=== PATIENT | male | born 1980 | race African-American/Black ===

== ENCOUNTER 2017-10-15 18:36 | Emergency (ER) | payer BC ==
--- NOTE | 2017-10-15 18:41 | PDOC ---
Rapid Medical Evaluation Time Seen by Provider: 10/15/17 18:37 Medical Evaluation: Allergies Allergy/AdvReac Type Severity Reaction Status Date / Time No Known Allergies Allergy Verified 05/17/16 09:50 10/15/17 18:38 Pt c/o: rash to sides of neck since thursday, used topical (unknown name) no improvement, states rash is itchy, denies allergies Pt on brief exam: raised patches to bilateral base of neck. Pt ordered for: none Pt to proceed to the ED Discharge Disposition - Diagnosis Contact dermatitis - Discharge Dispostion Disposition: HOME Condition at time of disposition: Stable - Prescriptions Prescriptions: Tacrolimus 0.1% Topical Oint [Protopic (Nf)] 30 gm NR BID #1 tube - Referrals Referrals: FriendAnkur [Primary Care Provider] - - Patient Instructions Printed Discharge Instructions: DI for Contact Dermatitis Additional Instructions: Rest, keep cool and dry- avoid strenuous activity or hot /humid environments Less hot showers, no abrasive soaps May use heavy creams like Eucerin or Cetaphil to keep skin moist You received one dose of Decadron 10 mg as a steroid, one time use for inflammation May apply Aveeno, calamine lotion, [id number] hydrocortisone creams as needed for symptoms May use Benadryl at night for antihistamine, Zyrtec/ Helen or Claritin for daytime antihistamine use to help with itching May use [id number] hydrocortisone cream on all areas except face Try to identify cause for rash and avoid exposures Followup with PMD in one week if no resolution Make appointment with box feeder for evaluation when possible - Post Discharge Activity
[2017-10-15 18:42] VITALS: BP 110/61; PULSE 65; TEMP 98.3; BMI 26.6
[2017-10-15] MEDS ORDERED: DEXAMETHASONE SOD PHOSPHATE 10 MG/1 ML VIAL IM ONE (18:59)
--- NOTE | 2017-10-15 18:59 | PDOC ---
History of Present Illness - General Chief Complaint: Rash Stated Complaint: RASH Time Seen by Provider: 10/15/17 18:37 History Source: Patient Exam Limitations: No Limitations - History of Present Illness Initial Comments: 10/15/17 19:02 Patient came for evaluation of rash that is progressively worsening around neck. States 2 days ago used a hair cream for the first time and woke up following day with an itchy pruritic rash to the right side of his back. States since that time after hot shower rashes progressively worsened to spread around both sides. Has used Benadryl with some minimal resolved., No drainage, no swelling to face tongue and lips. Timing/Duration: reports: getting worse Severity: Yes: mild Location: reports: scalp Modifying Factors: improves with: antihistamine, scratching Associated Symptoms: reports: denies symptoms Past History - Travel Traveled outside of the country in the last 30 days: No Close contact w/someone who was outside of country & ill: No - Past Medical History Allergies/Adverse Reactions: Allergies Allergy/AdvReac Type Severity Reaction Status Date / Time No Known Allergies Allergy Verified 05/17/16 09:50 Home Medications: Ambulatory Orders Tacrolimus 0.1% Topical Oint [Protopic (Nf)] 30 gm NR BID #1 tube 10/15/17 COPD: No DVT: No - Surgical History Abdominal Surgery: Yes (VARICOCELLE REPAIR) - Suicide/Smoking/Psychosocial Hx Smoking Status: No Smoking History: Never smoked Have you smoked in the past 12 months: No Number of Cigarettes Smoked Daily: 0 Hx Alcohol Use: No Drug/Substance Use Hx: No Substance Use Type: None Hx Substance Use Treatment: No Review of Systems - Review of Systems Able to Perform ROS?: Yes Is the patient limited German proficient: Yes Constitutional: Yes: Symptoms Reported, See HPI, Malaise HEENTM: Yes: See HPI. No: Symptoms Reported, Eye Pain Respiratory: Yes: Symptoms reported Integumentary: Yes: Symptoms Reported, See HPI, Pruritus, Rash All Other Systems: Reviewed and Negative *Physical Exam - Vital Signs Last Vital Signs Temp Pulse Resp BP Pulse Ox 98.3 F 65 20 110/61 100 10/15/17 18:38 10/15/17 18:38 10/15/17 18:38 10/15/17 18:38 10/15/17 18:38 - Physical Exam General Appearance: Yes: Nourished, Appropriately Dressed, Apparent Distress, Mild Distress HEENT: positive: ZEB, Normal ENT Inspection, Normal Voice, TMs Normal, Pharynx Normal Neck: positive: Supple, Other (maculopapular rash along lateral aspect of right and left sides of neck below ear and distal to the hairline. Her be borjas consistent with a contact dermatitis from hair product no vesicular lesions, no grouped or weeping lesions, no evidence of cellulitis.). negative: Tender Gastrointestinal/Abdominal: positive: Normal Bowel Sounds, Soft Musculoskeletal: positive: Normal Inspection Extremity: positive: Normal Capillary Refill, Normal Inspection, Normal Range of Motion Integumentary: positive: Normal Color Neurologic: positive: rib puller II-XII NML intact, Fully Oriented, Alert, Normal Mood/ Affect, Normal Response, Motor Strength 5/5 Progress Note - Progress Note Progress Note: Contact dermatitis, probably related to some hair products. Given one dose of Decadron for steroid use and recommended topical hydrocortisone creams *DC/Admit/Observation/Transfer Diagnosis at time of Disposition: Contact dermatitis Qualifiers: Contact dermatitis type: irritant Contact dermatitis trigger: solvent Qualified Code(s): L24.2 - Irritant contact dermatitis due to solvents - Discharge Dispostion Disposition: HOME Condition at time of disposition: Stable Decision to Admit order: No - Referrals Referrals: FriendAnkur [Primary Care Provider] - - Patient Instructions Printed Discharge Instructions: DI for Contact Dermatitis Additional Instructions: Rest, keep cool and dry- avoid strenuous activity or hot /humid environments Less hot showers, no abrasive soaps May use heavy creams like Eucerin or Cetaphil to keep skin moist You received one dose of Decadron 10 mg as a steroid, one time use for inflammation May apply Aveeno, calamine lotion, arvj-hyv-oynqvxk hydrocortisone creams as needed for symptoms May use Benadryl at night for antihistamine, Zyrtec/ Helen or Claritin for daytime antihistamine use to help with itching May use [id number] hydrocortisone cream on all areas except face Try to identify cause for rash and avoid exposures Followup with PMD in one week if no resolution Make appointment with yacht builder for evaluation when possible - Post Discharge Activity
[2017-10-15] MEDS ORDERED: DEXAMETHASONE SOD PHOSPHATE 10 MG/1 ML VIAL ONE (19:00)
== END 2017-10-15 19:10 | disposition home or self-care (01) ==
LOC: JERFT 18:36
PROC: 3E023GC Introduction of Other Therapeutic Substance into Muscle, Percutaneous Approach (ICD-10-PCS; principal; 2017-10-15)
DX: L24.2 Irritant contact dermatitis due to solvents (principal)
CPT/HCPCS: 99281-25; J1100

== ENCOUNTER 2017-12-01 11:15 | Emergency (ER) | payer OTHER, BC ==
[2017-12-01 11:35] VITALS: BP 124/66; PULSE 53; TEMP 97.5; BMI 21.7
[2017-12-01] MEDS ORDERED: ACETAMINOPHEN 325 MG TABLET (FP) PO ONE (11:56)
[2017-12-01] MEDS ORDERED: ACETAMINOPHEN 325 MG TABLET (FP) ONE (11:58)
--- NOTE | 2017-12-01 12:04 | PDOC ---
History of Present Illness - General Chief Complaint: Injury Stated Complaint: HEAD INJURY Time Seen by Provider: 12/01/17 11:38 History Source: Patient Exam Limitations: No Limitations - History of Present Illness Initial Comments: 12/01/17 11:57 37 yr male with c/o left sided headache after getting hit in the head with swing at work [employer]. This was at 930am today, no LOC, pt c/o headache and feels dizzyness. no nausea or vomiting. no pmhx. Past History - Past Medical History Allergies/Adverse Reactions: Allergies Allergy/AdvReac Type Severity Reaction Status Date / Time No Known Allergies Allergy Verified 12/01/17 11:31 Home Medications: Ambulatory Orders Tacrolimus 0.1% Topical Oint [Protopic (Nf)] 30 gm NR BID #1 tube 10/15/17 CVA: No COPD: No DVT: No - Surgical History Abdominal Surgery: Yes (VARICOCELLE REPAIR) - Suicide/Smoking/Psychosocial Hx Smoking Status: No Smoking History: Never smoked Have you smoked in the past 12 months: No Number of Cigarettes Smoked Daily: 0 Information on smoking cessation initiated: No Hx Alcohol Use: No Drug/Substance Use Hx: No Substance Use Type: None Hx Substance Use Treatment: No Trauma Specific PMHX - Complaint Specific PMHX Arthritis: No Back Injury: No Neck Injury: No Hx Sacro Iliac Joint Dysfunction: No Review of Systems - Review of Systems Able to Perform ROS?: Yes Is the patient limited South [place] proficient: No Constitutional: No: Symptoms Reported HEENTM: No: Symptoms Reported Respiratory: No: Symptoms reported Cardiac (ROS): No: Symptoms Reported ABD/GI: No: Symptoms Reported : No: Symptoms Reported Integumentary: No: Symptoms Reported Neurological: Yes: Symptoms reported, Headache *Physical Exam - Vital Signs Last Vital Signs Temp Pulse Resp BP Pulse Ox 97.5 F L 53 L 16 124/66 100 12/01/17 11:31 12/01/17 11:31 12/01/17 11:31 12/01/17 11:31 12/01/17 11:31 - Physical Exam General Appearance: Yes: Nourished, Appropriately Dressed HEENT: positive: ZEB, Normal ENT Inspection, TMs Normal, Pharynx Normal Neck: positive: Supple Respiratory/Chest: positive: Lungs Clear, Normal Breath Sounds Cardiovascular: positive: Regular Rhythm, Regular Rate Gastrointestinal/Abdominal: positive: Normal Bowel Sounds, Soft Musculoskeletal: positive: Normal Inspection Extremity: positive: Normal Capillary Refill, Normal Inspection, Normal Range of Motion Integumentary: positive: Normal Color, Dry, Warm Neurologic: positive: Fully Oriented, Alert, Normal Mood/Affect, Normal Response , Motor Strength 5/5, Finger to Nose (intact ). negative: Facial Droop, Numbness, Sensory Deficit, Confused ED Treatment Course - RADIOLOGY Radiology Studies Ordered: Category Date Time Status HEAD CT WITHOUT CONTRAST [CT] Stat CT Scan 12/01/17 11:57 Ordered Medical Decision Making - Medical Decision Making 12/01/17 12:00 cc: head injury at work, [place] [facility] [employer] no loc, neg nv headache will get head CT [place] now for headache *DC/Admit/Observation/Transfer Diagnosis at time of Disposition: Headache Qualifiers: Headache type: unspecified Headache chronicity pattern: acute headache Intractability: not intractable Qualified Code(s): R51 - Headache - Discharge Dispostion Disposition: HOME Condition at time of disposition: Good - Referrals Referrals: FriendAnkur [Primary Care Provider] - - Patient Instructions Printed Discharge Instructions: DI for Closed Head Injury Additional Instructions: drink pleanty of water take tylenol 650mg every 4-6hrs for headache as needed avoid reading, watching TV , straining your eyes follow with your doctor tomorrow for follow up Return to ER for any worsening symptoms - Post Discharge Activity
== END 2017-12-01 13:07 | disposition home or self-care (01) ==
LOC: JERFT 11:15
DX: S09.8XXA Other specified injuries of head, initial encounter (principal); W20.8XXA Other cause of strike by thrown, projected or falling object, initial encounter; Y93.89 Activity, other specified; Y92.198 Other place in other specified residential institution as the place of occurrence of the external cause; Y99.0 Civilian activity done for income or pay
CPT/HCPCS: 70450-TC; 99281-25

== ENCOUNTER 2018-10-02 18:47 | Emergency (ER) | payer BC ==
[2018-10-02 19:05] VITALS: BP 114/70; PULSE 59; TEMP 98.1; BMI 25.8
--- NOTE | 2018-10-02 19:48 | PDOC ---
History of Present Illness - General Chief Complaint: Pain, Acute Stated Complaint: RIGHT THUMB PAIN/ABD PAIN History Source: Patient Exam Limitations: No Limitations - History of Present Illness Initial Comments: 10/02/18 19:39 38 yo M with no medical history presents to the emergency department with right thumb pain and abdominal pain periumbilical beginning today at 10am. Per the patient, he accidentally slammed his right thumb on the car door when closing it. He used 2x tylenol without relief. The pain is described as sharp and non radiating. He denies decreased sensation, but endorses weakness in the right thumb. Concurrently, he developed gradual onset abdominal pain located in the periumbilical that is cramping like sensation without radiation without the following features: fever, nausea, vomiting, constipation, dysuria, penile discharge, testicular pain/swelling, diarrhea, and hematochezia. He states the pain occurrs when he presses down, but is asymptomatic without palpation. He endorses eating a cheeseburger last night that did "not settle well". Shx: None Allergies: NKDA Meds: tylenol Social: Denies tobacco and alcohol use. Past History - Past Medical History Allergies/Adverse Reactions: Allergies Allergy/AdvReac Type Severity Reaction Status Date / Time No Known Allergies Allergy Verified 10/02/18 21:24 Home Medications: Ambulatory Orders Cephalexin Monohydrate [Keflex -] 500 mg PO BID #10 capsule 10/02/18 Cephalexin [Keflex] 500 mg PO BID #10 capsule 10/02/18 Oxycodone HCl/Acetaminophen [Percocet 5/325 -] 1 tab PO Q6H #16 tablet MDD 4 CVA: No COPD: No DVT: No - Surgical History Abdominal Surgery: Yes (VARICOCELLE REPAIR) - Suicide/Smoking/Psychosocial Hx Smoking Status: No Smoking History: Never smoked Have you smoked in the past 12 months: No Number of Cigarettes Smoked Daily: 0 Information on smoking cessation initiated: No Hx Alcohol Use: No Drug/Substance Use Hx: No Substance Use Type: None Hx Substance Use Treatment: No *Physical Exam - Vital Signs Last Vital Signs Temp Pulse Resp BP Pulse Ox 98.1 F 59 L 16 114/70 100 10/02/18 19:02 10/02/18 19:02 10/02/18 19:02 10/02/18 19:02 10/02/18 19:02 - Physical Exam General Appearance: Yes: Nourished, Appropriately Dressed. No: Apparent Distress, Obese HEENT: positive: EOMI, ZEB, Normal Voice, Symmetrical, Pharynx Normal, Hearing Grossly Normal. negative: Pale Conjunctivae, Scleral Icterus (R), Scleral Icterus (L), Muffled/Hoarse voice, Pharyngeal Erythema, Tonsillar Exudate, Tonsillar Erythema Neck: positive: Trachea midline, Supple. negative: Tender, Lymphadenopathy (R) , Lymphadenopathy (L), Tender lateral, Tender midline Respiratory/Chest: positive: Lungs Clear, Normal Breath Sounds. negative: Chest Tender, Respiratory Distress, Accessory Muscle Use, Rales, Rhonchi, Stridor, Wheezing Cardiovascular: positive: Regular Rhythm, Regular Rate, S1, S2. negative: Systolic Murmur Gastrointestinal/Abdominal: positive: Normal Bowel Sounds, Tender ( periumbilical region. No tenderness to palpation in the lower abdomen, RLQ, and LLQ. ), Flat, Soft. negative: Distended, Guarding, Rebound Lymphatic: negative: Adenopathy Musculoskeletal: positive: Normal Inspection. negative: CVA Tenderness, Vertebral Tenderness Extremity: positive: Normal Capillary Refill, Normal Range of Motion, Other ( subungal hematoma in the right thumb with intact nail bed. no sensation deficits. flexation and extension intact in thumb. ). negative: Normal Inspection, Tender, Swelling, Calf Tenderness Integumentary: positive: Normal Color, Dry, Warm. negative: Swelling, Ecchymosis Neurologic: positive: radio performer II-XII NML intact, Fully Oriented, Alert, Normal Mood/ Affect, Normal Response, Motor Strength 10/10 ED Treatment Course - LABORATORY CBC & Chemistry Diagram: 10/02/18 20:18 10/02/18 20:18 *DC/Admit/Observation/Transfer Diagnosis at time of Disposition: Subungual hematoma of right thumb Qualifiers: Encounter type: initial encounter Qualified Code(s): S60.111A - Contusion of right thumb with damage to nail, initial encounter - Discharge Dispostion Disposition: HOME Decision to Admit order: No - Prescriptions Prescriptions: Cephalexin [Keflex] 500 mg PO BID #10 capsule Cephalexin Monohydrate [Keflex -] 500 mg PO BID #10 capsule Oxycodone HCl/Acetaminophen [Percocet 5/325 -] 1 tab PO Q6H #16 tablet MDD 4 - Referrals Referrals: Benjie Mills MD [Staff Physician] - - Patient Instructions Additional Instructions: you were seen for the evaluation of your thumb pain. your xray was normal. your labs were within normal limits. please follow up with Dr. Mills within 5 days for follow up care and management. please take your antibiotics as prescribed. use tylenol and motrin for pain relief and directed on the label. please return to the emergency department if you have worsening symptoms or new concerning symptoms such as loss of finger sensation, inability to move finger, discoloration of the thumb, and red streaks going up the wrist. Thank you. - Post Discharge Activity Forms/Work/School Notes: Back to Work
[2018-10-02] MEDS ORDERED: IBUPROFEN 600 MG TABLET (FP) PO ONE ×3 (20:40→20:46)
[2018-10-02 20:46] LABS: BASO % 0.4 % (0-2.0); HEMATOCRIT 41.2 % (35.4-49); LYMPH % 26.3 % (8-40); MEAN CELL VOLUME 85.1 fl (80-96); MEAN PLT VOLUME 8.6 fl (7.5-11.1); MONO % 11.5 % (3.8-10.2); NEUT % 58.8 % (42.8-82.8); PLATELET COUNT 155 K/MM3 (134-434); RBC 4.83 M/mm3 (4.00-5.60); WHITE BLOOD COUNT 5.2 K/mm3 (4.0-10.0)
[2018-10-02 21:01] LABS: ALBUMIN 3.9 g/dl (3.4-5.0); ALK PHOS 76 U/L (45-117); ANION GAP 7 MMOL/L (8-16); BILIRUBIN,TOTAL 0.6 mg/dL (0.2-1); BLOOD UREA NITROGEN 15 mg/dL (7-18); CALCIUM 9.3 mg/dL (8.5-10.1); CHLORIDE 106 mmol/L (98-107); CO2 29 mmol/L (21-32); CREATININE 0.9 mg/dL (0.55-1.3); GLUCOSE,RANDOM 108 mg/dL (74-106); LIPASE 149 U/L (73-393); POTASSIUM 3.9 mmol/L (3.5-5.1); SGOT/AST 18 U/L (15-37); SGPT/ALT 19 U/L (13-61); SODIUM 141 mmol/L (136-145)
[2018-10-02] MEDS ORDERED: CEPHALEXIN MONOHYDRATE 500 MG CAPSULE (UD) PO ONE (21:03)
[2018-10-02] MEDS ORDERED: DIPHTH,PERTUSS(ACELL),TET 0.5 ML DISP.SYRIN IM ONE ×2 (21:03→21:08)
[2018-10-02] MEDS ORDERED: CEPHALEXIN MONOHYDRATE 500 MG CAPSULE (UD) ONE (21:08)
[2018-10-02 21:31] LABS: PH,URINE 7.5 (5.0-8.0); URINE APPEARANCE CLEAR; URINE BILIRUBIN NEGATIVE (NEGATIVE); URINE COLOR YELLOW; URINE GLUCOSE (UA) NEGATIVE (NEGATIVE); URINE KETONE NEGATIVE (NEGATIVE); URINE LEUK ESTERASE NEGATIVE (NEGATIVE); URINE NITRITE NEGATIVE (NEGATIVE); URINE PROTEIN NEGATIVE (NEGATIVE)
--- NOTE | 2018-10-02 21:50 | PDOC ---
Documentation entered by Chantale Aquino SCRIBE, acting as scribe for Isi Berrios MD. Isi Berrios MD: This documentation has been prepared by the scribe, Chantale Aquino SCRIBE, under my direction and personally reviewed by me in its entirety. I confirm that the documentation accurately reflects all work, treatment, procedures, and medical decision making performed by me. Attending Attestation - Resident Resident Name: Shaan Ribera - [facility] HPI: 10/02/18 20:34 38 year old male with no significant past medical history presents with right thumb pain after closing his thumb in a car door at 10am today which has not been relieved by Tylenol. Denies any associated numbness or tingling, but reports mild weakness. Additionally, patient complains of worsening periumbilical abdominal pain since last night after eating a cheeseburger, which he does not normally eat. He denies any nausea, vomiting, diarrhea, hematemesis, melena or hematochezia. - Physicial Exam PE: 10/02/18 21:05 GENERAL: Awake, alert, and fully oriented, in no acute distress LUNGS: Breath sounds equal, clear to auscultation bilaterally. No wheezes, and no crackles HEART: Regular rate and rhythm, normal S1 and S2, no murmurs, rubs or gallops ABDOMEN: Soft, nontender, normoactive bowel sounds. No guarding, no rebound. No masses EXTREMITIES: Swelling and pain at DIP joint of right thumb with subungual hematoma encompassing 33% of the nail bed. No redness, no deformity. Good capillary refill. Normal range of motion, no edema. Warm and well perfused. NEUROLOGICAL: Moves all extremities. Normal speech SKIN: Warm, Dry, normal turgor, no rashes or lesions noted. - Medical Decision Making 10/03/18 22:04 Pt will be given tetanus vaccine as well as abx and he can follow with ortho hand/hand surg. He was placed in a thimb splint and ice was applied.
== END 2018-10-02 21:40 | disposition home or self-care (01) ==
LOC: JER 18:47
PROC: 3E0234Z Introduction of Serum, Toxoid and Vaccine into Muscle, Percutaneous Approach (ICD-10-PCS; principal; 2018-10-02)
DX: S60.111A Contusion of right thumb with damage to nail, initial encounter (principal); V48.3XXA Unspecified car occupant injured in noncollision transport accident in nontraffic accident, initial encounter; Y92.488 Other paved roadways as the place of occurrence of the external cause; Y93.89 Activity, other specified; Y99.8 Other external cause status
CPT/HCPCS: 36415; 73130-TC-RT-FY; 73140-TC-RT-FY; 80053; 81003; 83690; 85025; 87086; 90715; 99282-25

== ENCOUNTER 2020-05-09 17:17 | Emergency (ER) | payer BC ==
[2020-05-09 17:21] VITALS: BP 131/83; TEMP 98.7; BMI 25.8
[2020-05-09 19:57] LABS: BASO % 0.5 % (0-2.0); EOS % 1.1 % (0-4.5); HEMATOCRIT 41.1 % (35.4-49); HEMOGLOBIN 13.7 GM/dL (11.7-16.9); LYMPH % 29.7 % (8-40); MCH 28.3 pg (25.7-33.7); MCHC 33.2 g/dl (32.0-35.9); MEAN PLT VOLUME 8.2 fl (7.5-11.1); NEUT % 58.7 % (42.8-82.8); PLATELET COUNT 168 K/MM3 (134-434); RBC 4.84 M/mm3 (4.00-5.60); RDW 14.5 % (11.9-15.9); WHITE BLOOD COUNT 4.5 K/mm3 (4.0-10.0)
[2020-05-09 20:19] LABS: POTASSIUM 3.8 mmol/L (3.5-5.1)
[2020-05-09 20:21] LABS: ALBUMIN 4.1 g/dl (3.4-5.0); BLOOD UREA NITROGEN 9.5 mg/dL (7-18); CALCIUM 9.2 mg/dL (8.5-10.1)
[2020-05-09 20:25] LABS: CREATININE 0.9 mg/dL (0.55-1.3)
[2020-05-09 20:26] LABS: BILIRUBIN,TOTAL 0.8 mg/dL (0.2-1); TOT PROT 7.1 g/dl (6.4-8.2)
[2020-05-09 21:37] VITALS: PULSE 80
== END 2020-05-09 21:39 | disposition home or self-care (01) ==
LOC: JER 17:17
DX: T54.91XA Toxic effect of unspecified corrosive substance, accidental (unintentional), initial encounter (principal)
CPT/HCPCS: 36415; 71046-TC-FY; 80053; 83605; 85025; 93005; 93010; 99285-25